=== PATIENT | male | born 1950 | race Caucasian/White ===

== ENCOUNTER 2016-08-14 11:52 | Emergency (ER) | payer MEDICARE, MEDICAID, OTHER ==
--- NOTE | ~2016-08-14 | ER ---
PATIENT'S NAME: ЕЛЕНА ESTES [facility] AGE: 66 Y [address] ROOM: [place] [address] LOCATION: [facility] ADMIT DATE: 08/14/2016 ER/Outpatient Report DISCHARGE DATE: 08/14/2016 FAMILY PHYSICIAN: Anaid Sandoval MD ATTENDING PHYSICIAN: Edvin Billingsley CHIEF COMPLAINT: Fall. HISTORY OF PRESENT ILLNESS: Immediately before EMS was called, the patient was following one of the care providers at the prison where the patient is a resident. By report, the patient had a witnessed fall. The individual who witnessed it and noticed that the patient where in he collapsed to his knees although collapse is not the best description. He more or less lowered himself to his knees and then fell forward and did strike his head. He does have advanced dementia. He normally is oriented to person and we will carry on a short brief conversation. People at the prison do note that his normal heart rate is 50 and his normal blood pressures are 90s and 100s systolically. He denies any other issues. EMS did note that his first blood pressure has taken by the facility immediately after the evaluation was in the 80 systolically. There is no report of loss of consciousness or seizure-like activity. Of note, he did recently complete a course of antibiotics for an unknown infection. PAST MEDICAL HISTORY: Documented on the record and reviewed by me. SOCIAL HISTORY: Documented on the record and reviewed by me. MEDICATIONS: Documented on the record and reviewed by me. ALLERGIES: DOCUMENTED ON THE RECORD AND REVIEWED BY ME. REVIEW OF SYSTEMS: All systems were reviewed and negative except as noted in the HPI. PHYSICAL EXAMINATION: VITAL SIGNS: Vital signs on arrival; blood pressure is 100/60, pulse 49, respiratory rate 16, temperature 96.5, SpO2 is 99% on room air. Pain is 0/10. GENERAL: Age-appropriate male. No obvious pain or distress. NEUROLOGIC: The patient is awake and alert. He is oriented to person, but not to date or time. GCS is 14 for that reason. No focal deficits or PATIENT'S NAME: ЕЛЕНА ESTES [facility] AGE: 66 Y [address] ROOM: [place], [place] [address] LOCATION: [facility] ADMIT DATE: 08/14/2016 ER/Outpatient Report DISCHARGE DATE: 08/14/2016 FAMILY PHYSICIAN: Anaid Sandoval MD ATTENDING PHYSICIAN: Edvin Billingsley asymmetry on exam. He stands without difficulty and walks without any significant abnormalities. HEENT: Normocephalic with a large area of hematoma over the right frontal region. No active bleeding. The pupils are PERRL. Extraocular movements are intact. The oropharynx is clear with no exudates or erythema. NECK: Supple. Trachea is midline. The neck has no posterior tenderness. CHEST/HEART: Regular rate and rhythm, bradycardic with no murmurs appreciated. The lungs are grossly clear to auscultation bilateral with no rhonchi, wheezes, or rales. ABDOMEN: Soft, nontender, and nondistended. BACK: Nontender to palpation along the spine. No paraspinal tenderness. No CVA tenderness. EXTREMITIES: Notable for skin tear over the lateral aspect of the right elbow, but otherwise unremarkable and intact. No edema or erythema appreciated. The extremities did not have any pain with palpation or range of motion of the shoulders, elbows, wrists, hips, knees, and ankles. No other abnormality. SKIN: Intact except as noted above. LABS AND X-RAYS: Chest x-ray was read as normal per my read. Head CT and C-spine CT were reported by Radiology to be within normal limits for age. Labs; procalcitonin is below threshold. Sodium 143, potassium 4.5, chloride is 106, CO2 is 28, BUN is 14, creatinine 1.0. GFR greater than 60. LFTs are within range. CPK is 61, CK-MB is 1.3. Troponin is below threshold. Free T4 is 0.8. TSH is 2.93. Serum lactate is 1.1. WBC 6.0, hemoglobin 13.3, platelets of 204. EKG appears to be sinus rhythm with a ventricular rate of approximately 50 with otherwise normal intervals and right axis deviation. No signs of acute ischemia. On telemetry, the patient was going in and out of atrial fibrillation. Rate was controlled throughout. IMPRESSION: 1. Fall. 2. Scalp contusion. 3. Skin tear. EMERGENCY DEPARTMENT COURSE: The patient was evaluated as above. He does appear to be at his baseline. He was slightly orthostatic from sitting to standing. He was given 500 mL bolus of NS. No other medications are warranted. I spoke personally with both the [facility] Lanette Ponce as well as the patient's power of research attorney, his son Javi. The patient does appear to be his baseline at this time. The nature of his fall appears to be mechanical. He may have some orthostasis associated with this. We treated that with fluids and are encouraging fluid intake. Basic wound cares to the elbow. He should follow up with Dr. Sandoval, PATIENT'S NAME: ЕЛЕНА ESTES [facility] AGE: 66 Y [address] ROOM: [place] [address] LOCATION: [facility] ADMIT DATE: 08/14/2016 ER/Outpatient Report DISCHARGE DATE: 08/14/2016 FAMILY PHYSICIAN: Anaid Sandoval MD ATTENDING PHYSICIAN: Edvin Billingsley whom I spoke to regarding this patient, on Wednesday for re-evaluation. All questions were answered and the patient was discharged and returned to the facility in good condition. MD JEANIE MORRIS/tarynl /[id number] d: 08/14/16 1809 t: 08/15/16 0625, OUTPATIENT REPORT
[2016-08-14 12:18] LABS: BASOPHIL % 0.5 %; EOSINOPHIL # 0.4 K/uL (0.0-0.5); EOSINOPHIL % 6.5 %; HEMATOCRIT 40.5 % (37.0-53.0); HEMOGLOBIN 13.3 g/dL (11.0-16.0); IMMATURE GRANULOCYTE % 0.2 %; LYMPHOCYTE # 1.4 K/uL (0.8-4.0); LYMPHOCYTE % 22.4 %; MCH 31.1 pg (27.0-34.0); MCHC 32.8 gm/dL (32.0-36.5); MCV 94.6 fl (83.0-98.0); MONOCYTE # 0.4 K/uL (0.0-1.0); MONOCYTE % 5.8 %; MPV 11.1 fl (9.4-12.4); NEUTROPHIL # (ANC) 3.9 K/uL (1.4-9.0); NEUTROPHIL % 64.6 %; NRBC % 0 /100WBC (0-0.00); PLATELET COUNT 204 K/uL (150-450); RBC 4.28 M/uL (3.50-5.50); RDW-CV 13.4 % (11.9-14.6)
[2016-08-14 12:47] LABS: ALBUMIN 3.3 gm/dL (3.5-5.0); ALK PHOS 53 IU/L (33-138); ALT 32 IU/L (12-78); ANION GAP 13.5 (10.0-19.0); AST 19 IU/L (10-40); BLOOD UREA NITROGEN 14 mg/dL (6-24); CALCIUM 8.6 mg/dL (8.5-10.5); CHLORIDE 106 mMol/L (96-110); CO2 28 mMol/L (22-32); CPK 61 IU/L (35-332); ESTIMATED GFR (MDRD EQUATION) > 60; POTASSIUM 4.5 mMol/L (3.7-5.1); SODIUM 143 mMol/L (135-145); TOTAL BILIRUBIN 0.4 mg/dL (0.0-1.5); TOTAL PROTEIN 6.4 g/dL (6.0-8.4)
== END 2016-08-14 14:01 | disposition disaster alternative care site (69) ==
LOC: GACC 11:52
PROVIDERS: Emergency Medicine
DX: S51.011A Laceration without foreign body of right elbow, initial encounter (principal); S00.03XA Contusion of scalp, initial encounter; F03.90 Unspecified dementia, unspecified severity, without behavioral disturbance, psychotic disturbance, mood disturbance, and anxiety; Z88.0 Allergy status to penicillin; W20.8XXA Other cause of strike by thrown, projected or falling object, initial encounter; Y92.129 Unspecified place in nursing home as the place of occurrence of the external cause
CPT/HCPCS: J7030

== ENCOUNTER → 2016-08-14 | Outpatient (CLI) | payer MEDICARE, OTHER, MEDICAID ==
[~2016-08-14] MED LIST: ASPIRIN LO-DOSE81 MG PO; COMPLETE MULTI1 EAC1 PO; CYMBALTA30 MG PO; DESYREL50 MG PO; GEODON20 MG PO; GEODON60 MG PO; LEVOTHROID (SY25 MCG PO; MAALOX LIQ UNIT30 ML PO; METAMUCIL PACKE1 PKT PO; MILK OF MA400 MG/5 M PO; MIRALAX17 GM PO; NAMENDA XR28 MG PO; NITROSTAT0.4 MG SL; NUTRITIONAL SU237 ML PO; TOPROL XL100 MG PO; TYLENOL325 MG PO; [UNRECOGNIZED DRUG - OTHER] TOP
== END | disposition disaster alternative care site (69) ==
LOC: GAMB 11:34
DX: R53.1 Weakness (principal); R55 Syncope and collapse; S00.83XA Contusion of other part of head, initial encounter; W19.XXXA Unspecified fall, initial encounter
CPT/HCPCS: A0422; A0425; A0427

== ENCOUNTER 2016-09-30 17:35 | Inpatient (IN) | payer MEDICARE, MEDICAID, OTHER ==
[~2016-09-30] VITALS: Ht 195.6 cm; Wt 74.8 kg
--- NOTE | ~2016-09-30 | DS ---
PATIENT'S NAME: ЕЛЕНА ESTES [facility] AGE: 66 Y [address] ROOM: [id number] [place], [place] [address] LOCATION: [facility] ADMIT DATE: 09/30/2016 Discharge Summary DISCHARGE DATE: 10/07/2016 FAMILY PHYSICIAN: Anaid Sandoval MD ATTENDING PHYSICIAN: Jayant Crenshaw ADMISSION DIAGNOSIS: Right hip fracture (intertrochanteric fracture of right hip). DISCHARGE DIAGNOSIS: Right hip fracture, status post repair (intertrochanteric fracture of right hip). SECONDARY DIAGNOSES: Dementia, hypertension, hyperlipidemia, and hypothyroidism. HOSPITAL COURSE: The patient resided at [facility]. He fell on 09/30/2016 and sustained a right hip fracture, intertrochanteric fracture. It was surgically repaired on 10/01/[address] Rizzo. He did well postoperatively. Postoperative hemoglobin 11.9. He did have family stay with him in the room at times to help with his agitation due to his dementia. Continued his same home medications. It was determined that he needed to go to long term facility postoperatively and it did take a couple of days to find a placement. He is going to go to [facility] today. DISPOSITION: Discharged to [facility]. FOLLOWUP: Follow up with myself in two weeks and with orthopedics per their recommendation. We will plan to continue with OT and PT therapies at [facility]. MEDICATIONS: 1. Tylenol 650 mg p.o. b.i.d. and q.4 hours p.r.n. pain and fever. 2. Aspirin 81 mg p.o. q.h.s. 3. Colace 100 mg p.o. twice a day. 4. Cymbalta 30 mg twice daily. 5. Levothyroxine 25 mcg p.o. daily. 6. Toprol-XL 100 mg p.o. daily. 7. MiraLAX 17 g p.o. daily p.r.n. constipation. 8. Metamucil packet one packet every 48 hours. 9. Trazodone 50 mg p.o. q.h.s. 10. Maalox p.r.n. 11. Geodon 60 mg b.i.d. and 20 mg q.8 hours p.r.n. anxiety/agitation. 12. Milk of magnesia p.r.n. 13. Nitroglycerin sublingual 0.4 mg p.r.n. chest pain. PATIENT'S NAME: ЕЛЕНА ESTES [facility] AGE: 66 Y [address] ROOM: [place] [address] LOCATION: [facility] ADMIT DATE: 09/30/2016 Discharge Summary DISCHARGE DATE: 10/07/2016 FAMILY PHYSICIAN: Anaid Sandoval MD ATTENDING PHYSICIAN: Jayant Crenshaw 14. Multivitamin one tablet daily. 15. Provon cream applied to scrotum twice daily with toileting. 16. Namenda XR 28 mg p.o. q.h.s. 17. Lactose-free nutritional supplement one can t.i.d. MD ANNA GRAY/modl /[id number] d: 10/07/16623 t: 10/20/162020, DISCHARGE SUMMARY
--- NOTE | ~2016-09-30 | ER ---
PATIENT'S NAME: ЕЛЕНА ESTES [facility] AGE: 66 Y [address] ROOM: [place] [address] LOCATION: [facility] ADMIT DATE: 09/30/2016 ER/Outpatient Report DISCHARGE DATE: FAMILY PHYSICIAN: Anaid Sandoval MD ATTENDING PHYSICIAN: Jayant Crenshaw Admission date and time documented in the medical record. I saw the patient at 1805 hours when I came on shift. CHIEF COMPLAINT: Ground-level fall, right hip pain. HISTORY OF PRESENT ILLNESS: The patient is a 66-year-old male who lives at [facility]. He does have Alzheimer dementia, was found on the floor by staff. Unwitnessed fall. The patient was awake. Complained of right hip pain, brought to the emergency room by paramedics via ambulance for evaluation. The patient has a little bit of shortening of the right leg. He is not able to converse or give me any information. On movement of the right hip, it is painful. Does have some minor skin tear abrasions to the right elbow. HOME MEDICATIONS: See attached medication list. ALLERGIES: PENICILLIN. SOCIAL HISTORY: Nonsmoker, nondrinker. SIGNIFICANT PAST MEDICAL HISTORY: Alzheimer dementia, hypothyroidism, hypertension, and depression. OPERATIONS: Unknown. ROS: Unable to obtain review of systems from the patient. PHYSICAL EXAMINATION: VITAL SIGNS: Temperature 98.2, tympanic; pulse 66; respirations 20; blood pressure 125/70; O2 saturation on room air was 96%. HEAD: Normocephalic. No abrasion, contusion, laceration, swelling of the scalp or face. EYES: Extraocular muscles intact. PERRL. PATIENT'S NAME: ЕЛЕНА ESTES [facility] AGE: 66 Y [address] ROOM: [place] [address] LOCATION: [facility] ADMIT DATE: 09/30/2016 ER/Outpatient Report DISCHARGE DATE: FAMILY PHYSICIAN: Anaid Sandoval MD ATTENDING PHYSICIAN: Jayant Crenshaw EARS, NOSE, THROAT: Clear. Mucous membranes are moist. Teeth and jaw intact. NECK: No nuchal rigidity. No thyromegaly or cervical adenopathy. No tenderness. SPINE: Negative. LUNGS: Clear. Good air flow. No rales, rhonchi, or wheezes. HEART: Regular. Pulses are palpable. ABDOMEN: Soft, flat, nondistended, nontender. Good bowel tones. No organomegaly or abnormal masses palpable. PELVIS: Stable. EXTREMITIES: The patient has a slightly shortened right lower extremity, has pain to any type of motion, has some skin tears to his right elbow. No other deformities. NEURO: The patient is demented, Alzheimer dementia. No lateralizing signs. No other neurological changes. SKIN: Clear. IMAGING DATA: X-ray of the right elbow showed no fracture or dislocation. X-ray of the pelvis shows a femoral neck fracture, right hip. We will review all plain films with the radiologist proceeded with EKG, chest x-ray, laboratory studies, all pending. IMPRESSION: 1. A femoral neck fracture, right hip secondary to ground-level fall, unwitnessed. 2. Alzheimer dementia. 3. Hypothyroidism. 4. Hypertension. 5. Depression. PLAN: Discuss[facility] the patient with Dr[facility]shaw has come to the emergency room to evaluate the patient and proceed on his recommendations. I did not contact Ortho at this time. We will let Dr. Crenshaw decide on that. The family had no preference for orthopedic surgeon. I did discuss everything with the family and they understand. MONROE CHIN MD SDS/modl PATIENT'S NAME: ЕЛЕНА ESTES [facility] AGE: 66 Y [address] ROOM: [address] [address] LOCATION: [facility] ADMIT DATE: 09/30/2016 ER/Outpatient Report DISCHARGE DATE: FAMILY PHYSICIAN: Anaid Sandoval MD ATTENDING PHYSICIAN: Jayant Crenshaw /[id number] d: 10/01/16 0058 t: 10/01/161808, OUTPATIENT REPORT
--- NOTE | ~2016-09-30 | HP ---
PATIENT'S NAME: ЕЛЕНА ESTES [facility] AGE: 66 Y [address] ROOM: [place] [address] LOCATION: [facility] ADMIT DATE: 09/30/2016 History & Physical DISCHARGE DATE: FAMILY PHYSICIAN: Anaid Sandoval MD ATTENDING PHYSICIAN: Jayant Crenshaw DATE OF SERVICE: CHIEF COMPLAINT: Subtrochanteric fracture of left hip. HISTORY: This 66-year-old male has had a 10-year history of dementia. He has been at [facility] for the past 3-1/2 years. He fell yesterday and suffered a subtroch fracture of his left hip. There was no other injury. No loss of consciousness. The son says he has had a gradual deterioration of his mental status over the last year. He was seen in the [facility] Emergency Room and evaluated and x-rays demonstrated a displaced subtroch fracture of the left hip. PAST MEDICAL HISTORY: 1. Alzheimer's for 10 years. 2. Coronary artery disease. 3. Hyperlipidemia. 4. Hypertension. 5. History of TIA in 2005. PREVIOUS SURGERIES: Appendectomy, hip surgery, shoulder surgery, and tonsillectomy. SOCIAL HISTORY: Stopped chewing tobacco several years ago. Smoked for 25 years, quit in 2001. MEDICATIONS: 1. Cymbalta. 2. Desyrel. 3. Geodon. 4. Levothyroxine. 5. Namenda. 6. Toprol. 7. Nitrostat. FAMILY HISTORY: Positive for hypertension. PATIENT'S NAME: ЕЛЕНА ESTES [facility] AGE: 66 Y [address] ROOM: [place] [address] LOCATION: [facility] ADMIT DATE: 09/30/2016 History & Physical DISCHARGE DATE: FAMILY PHYSICIAN: Anaid Sandoval MD ATTENDING PHYSICIAN: Jayant Crenshaw REVIEW OF SYSTEMS: From the chart, there are no recent coughs, colds, fevers, chills. No chest pain. No dysuria or hematuria. No nausea or vomiting. Steady decline in neurologic status and loss of memory secondary Alzheimer's. PHYSICAL EXAMINATION: GENERAL: He is minimally verbal, says a few words. He cannot carry on a conversation. He opens his eyes, moves his head, but does not respond much to verbal questions. VITAL SIGNS: Weight 75 kg, pulse 66, respirations 18, temperature 98, and blood pressure 121/70, O2 sats 96% on room air. HEENT: Atraumatic, normocephalic. PERRL. EOMI. NECK: Supple, nontender. CHEST: Clear to auscultation. HEART: Regular rhythm. ABDOMEN: No masses. No tenderness. Active bowel sounds. EXTREMITIES: No edema. Intact pulses. Left leg is short and externally rotated. There is pain with movement of the left hip. He is tender in left groin. Skin is intact. There is no bruising. Knee and ankle have no swelling or tenderness. He moves his toes, cannot really respond much to verbal stimuli to assess sensation. DIAGNOSTIC DATA: Hemoglobin is 13.5, white count 10.4. IMPRESSION: 1. Subtrochanteric fracture left hip. 2. Fairly severe Alzheimer's dementia. 3. Hypertension. 4. Hypothyroidism, compensated. 5. Hyperlipidemia. 6. History of transient ischemic attacks. 7. History of tobacco abuse. 8. Fairly heavy alcohol use. PLAN: Preoperative medical clearance. He is not on any anticoagulants. We will plan on ORIF of his left hip after he has been cleared medically. I discussed details of the surgical procedure, risks, benefits, and alternatives, emphasizing anesthetic, neurovascular, and infectious complications. His son is here and we thoroughly discussed all the issues. His son is POA and desires that his father be surgically repaired. He understands that Dr. Rizzo will be doing the surgery. PATIENT'S NAME: ЕЛЕНА ESTES [facility] AGE: 66 Y [address] ROOM: [place] [address] LOCATION: [facility] ADMIT DATE: 09/30/2016 History & Physical DISCHARGE DATE: FAMILY PHYSICIAN: Anaid Sandoval MD ATTENDING PHYSICIAN: Jayant Crenshaw MD BHARGAV PARSON/albert /[id number] CC: Anaid Sandoval MD D: [id number] T: [id number] HISTORY & PHYSICAL
--- NOTE | ~2016-09-30 | OR ---
PATIENT'S NAME: ЕЛЕНА ESTES [facility] AGE: 66 Y [address] ROOM: [address] [place], [place] [address] LOCATION: [facility] ADMIT DATE: 09/30/2016 OR/Procedure Report DISCHARGE DATE: FAMILY PHYSICIAN: Anaid Sandoval MD ATTENDING PHYSICIAN: Jayant Crenshaw SURGEON: Rahul Rizzo MD BUCKET TURNER: DATE OF PROCEDURE: 10/01/2016 PREOPERATIVE DIAGNOSIS: Intertrochanteric fracture, right hip. POSTOPERATIVE DIAGNOSIS: Right femoral neck fracture. PROCEDURE: Percutaneous cannulated screw fixation. ANESTHESIA: General ET tube. INDICATIONS: This is a 66-year-old demented male, who fell yesterday sustaining a fracture of his right hip. Radiographs were difficult to get, and it was uncertain at what level the fracture was, but it looked like an intertrochanteric fracture. DESCRIPTION OF PROCEDURE: The patient was brought to the operating room and when a satisfactory general anesthesia had been established, he was transferred to the fracture table, and the fracture reduced with longitudinal traction and internal rotation. Reduction was checked with the C-arm, and it was noted to be a femoral neck fracture and definitely intracapsular. The right hip and thigh were then prepped and draped in an aseptic manner. The hip was visualized on the C-arm, and a line was drawn on the skin on the superior and inferior borders of the neck on the AP and the anterior and inferior borders of the neck on the lateral view. An incision was made approximating the posteroinferior aspect of the neck and the first guidepin was then drilled. When it was satisfactorily placed, a posterosuperior guidepin was drilled and then a central anterior guidepin was drilled. Each guidepin was measured, over-reamed, and filled with a 6.5 cannulated long- threaded screw over a washer. Each of the three screws tightened down nicely. Position of the implants and fracture fragments were then checked with the C- arm. The wounds were irrigated with saline, and subcutaneous fat closed with interrupted 2-0 Vicryl, and the skin closed with skin carlton. Dressings were applied, and the patient awakened and sent to the recovery area having tolerated the procedure well. PATIENT'S NAME: ЕЛЕНА ESTES [facility] AGE: 66 Y [address] ROOM: [address] [address] LOCATION: [facility] ADMIT DATE: 09/30/2016 OR/Procedure Report DISCHARGE DATE: FAMILY PHYSICIAN: Anaid Sandoval MD ATTENDING PHYSICIAN: Jayant Crenshaw MD CEChristine/albert /[id number] d: 10/01/16 2353 t: 10/07/16 1043, OPERATIVE SUMMARY
--- NOTE | ~2016-09-30 | HP ---
PATIENT'S NAME: ЕЛЕНА ESTES [facility] AGE: 66 Y [address] ROOM: [place] [address] LOCATION: [facility] ADMIT DATE: 09/30/2016 History & Physical DISCHARGE DATE: FAMILY PHYSICIAN: Anaid Sandoval MD ATTENDING PHYSICIAN: Sandra Crenshaw DATE OF SERVICE: CHIEF COMPLAINT: Right hip fracture. HISTORY OF PRESENT ILLNESS: The patient is a 66-year-old male with pretty significant dementia who came in from [facility] after having a fall. This is an unwitnessed fall from ground level with complaint of pain in his right hip and unable to bear weight on it. He has some significant dementia and so really cannot provide us lot of history. PAST MEDICAL HISTORY: Significant for Alzheimer disease, coronary artery disease which is nonobstructive, hyperlipidemia, hypertension, and a history of TIA back in 2005. PRIOR SURGERIES: Appendectomy, hip surgery in 2001, shoulder surgery in 1994 with rotator cuff repair, and tonsillectomy in the past. SOCIAL HISTORY: He does chew tobacco every day, is a former smoker, 25-year history, quit in 2001. IMMUNIZATION: Tdap and pneumonia vaccine in 2013. REVIEW OF SYSTEMS: Really unobtainable secondary to his dementia. PHYSICAL EXAMINATION: VITAL SIGNS: Weight is 74.4 kilograms, pulse 66, respirations 20, temperature 98.2, blood pressure 121/70, O2 saturation 96% on room air. GENERAL: The patient is a nontoxic appearing male, moderate amount of distress with movement. HEENT: Normocephalic, atraumatic. Ears, TMs are clear and intact bilaterally. Nose patent. Throat clear. NECK: Supple without lymphadenopathy, JVD, thyromegaly, or bruits. PATIENT'S NAME: ЕЛЕНА ESTES [facility] AGE: 66 Y [address] ROOM: [address] [address] LOCATION: [facility] ADMIT DATE: 09/30/2016 History & Physical DISCHARGE DATE: FAMILY PHYSICIAN: Anaid Sandoval MD ATTENDING PHYSICIAN: Sandra Crenshaw HEART: Regular rate and rhythm. LUNGS: Clear. ABDOMEN: Soft, nondistended, and nontender. Bowel sounds are positive. There is no hepatosplenomegaly. No guarding or rebound. EXTREMITIES: No clubbing, cyanosis, or edema. His right foot is a little bit shortened and externally rotated. He does have definite pain on palpation over the lateral aspect of the hip. LABORATORY DATA: His CBC; white cell count is 10.4, hemoglobin 13.5, hematocrit 40.1%. ASSESSMENT AND PLAN: A 66-year-old white male with following problems, 1. Right hip fracture. Will consult Ortho. Certainly not an ideal operative candidate. We will try and optimize his risk prior to going to the OR. 2. History of nonobstructive coronary disease. He no longer follows with cardiology. He is overall stable from a heart standpoint. 3. Hyperlipidemia, overall stable. 4. Pretty significant Alzheimer's dementia without evidence of behavioral disturbance. He is really confused and sounds like this is baseline. a. We will have a one-to-one observation with him. We will see how he does with that. 5. Hypertension, overall stable at this point. SANDRA CRENSHAW MD TAB/modl /[id number] D: [id number] T: [id number] HISTORY & PHYSICAL
--- NOTE | ~2016-09-30 | HP ---
PATIENT'S NAME: ЕЛЕНА MARTINO [facility] AGE: 66 Y [address] ROOM: [place] [address] LOCATION: [facility] ADMIT DATE: 09/30/2016 History & Physical DISCHARGE DATE: FAMILY PHYSICIAN: Anaid Sandoval MD ATTENDING PHYSICIAN: Jayant Crenshaw DATE OF SERVICE: I need to dictate a corrected history and physical on Елена Martino. Couple hours ago, I was looking at the wrong x-rays on him, so I need to correct this; they were the wrong date, anyway keep the history and physical except change it to pain in the right hip, not left hip, he fell and fractured his right hip. CHIEF COMPLAINT: Intertrochanteric fracture of the right hip. PHYSICAL EXAMINATION: His left hip moves without pain. He has good range of motion. Right hip is painful with motion and tender. There was slight external rotation to the right lower extremity. No redness, warmth, or ecchymosis. Everything else about the physical exam should be the same. X-RAYS: X-ray, AP pelvis, and frog lateral of the hips with also AP of the left hip shows minimally displaced intertrochanteric fracture of the right hip right at the base of the femoral neck. There was a healed angulated subtrochanteric fracture of the left hip. DIAGNOSES: 1. Intertrochanteric fracture, right hip. 2. Healed subtrochanteric fracture, left hip. PLAN: Preoperative medical clearance followed by ORIF of the right hip. I discussed details of the surgical procedure, risks, benefits, and alternatives emphasizing anesthetic, neurovascular, and infectious complications with both the patient and his son, who is his POA. They understand and desired to proceed with surgery as planned. GENESIS AYON MD PATIENT'S NAME: ЕЛЕНА MARTINO [facility] AGE: 66 Y [address] ROOM: [place] [address] LOCATION: [facility] ADMIT DATE: 09/30/2016 History & Physical DISCHARGE DATE: FAMILY PHYSICIAN: Anaid Sandoval MD ATTENDING PHYSICIAN: Jayant Crenshaw/modl /[id number] D: [id number] T: [id number] HISTORY & PHYSICAL
[2016-09-30 19:13] LABS: BASOPHIL # 0.1 K/uL (0.0-0.2); BASOPHIL % 0.5 %; EOSINOPHIL # 0.2 K/uL (0.0-0.5); EOSINOPHIL % 1.6 %; HEMATOCRIT 40.1 % (37.0-53.0); HEMOGLOBIN 13.5 g/dL (11.0-16.0); IMMATURE GRANULOCYTE # 0.1 K/uL (0.0-0.3); IMMATURE GRANULOCYTE % 0.9 %; LYMPHOCYTE % 9.3 %; MCH 31.1 pg (27.0-34.0); MCHC 33.7 gm/dL (32.0-36.5); MCV 92.4 fl (83.0-98.0); MONOCYTE # 0.5 K/uL (0.0-1.0); MONOCYTE % 4.4 %; NEUTROPHIL # (ANC) 8.6 K/uL (1.4-9.0); NEUTROPHIL % 83.3 %; NRBC % 0 /100WBC (0-0.00); PLATELET COUNT 269 K/uL (150-450); RBC 4.34 M/uL (3.50-5.50); RDW-CV 12.7 % (11.9-14.6); WBC 10.4 K/uL (4.0-11.0)
[2016-09-30 19:21] LABS: INR - (THERAPEUTIC) 1.08 (0.92-1.07); PROTIME 11.3 SECONDS (9.8-11.4); PTT 28 SECONDS (25-32)
[2016-09-30 19:25] LABS: ALBUMIN 3.5 gm/dL (3.5-5.0); ANION GAP 11.2 (10.0-19.0); BLOOD UREA NITROGEN 15 mg/dL (6-24); CALCIUM 8.9 mg/dL (8.5-10.5); CHLORIDE 106 mMol/L (96-110); CO2 29 mMol/L (22-32); CREATININE 0.8 mg/dL (0.6-1.3); ESTIMATED GFR (MDRD EQUATION) > 60; PHOSPHORUS 2.5 mg/dL (2.5-4.9); POTASSIUM 4.2 mMol/L (3.7-5.1); SODIUM 142 mMol/L (135-145)
[2016-09-30] MEDS ORDERED: LEVOTHROID (SY25 MCG PO (20:34)
[2016-09-30] MEDS ORDERED: METAMUCIL PACKE1 PKT PO (20:35)
[2016-09-30] MEDS ORDERED: TYLENOL325 MG PO ×2 (20:35→20:43)
[2016-09-30] MEDS ORDERED: TOPROL XL100 MG PO (20:36)
[2016-09-30] MEDS ORDERED: COMPLETE MULTI1 EAC1 PO (20:36)
[2016-09-30] MEDS ORDERED: [UNRECOGNIZED DRUG - OTHER] TOP (20:39)
[2016-09-30] MEDS ORDERED: ASPIRIN LO-DOSE81 MG PO (20:39)
[2016-09-30] MEDS ORDERED: CYMBALTA30 MG PO (20:39)
[2016-09-30] MEDS ORDERED: NAMENDA XR28 MG PO (20:40)
[2016-09-30] MEDS ORDERED: GEODON60 MG PO (20:40)
[2016-09-30] MEDS ORDERED: DESYREL50 MG PO (20:41)
[2016-09-30] MEDS ORDERED: NUTRITIONAL SU237 ML PO (20:41)
[2016-09-30] MEDS ORDERED: MIRALAX17 GM PO (20:42)
[2016-09-30] MEDS ORDERED: NITROSTAT0.4 MG SL (20:44)
[2016-09-30] MEDS ORDERED: MAALOX LIQ UNIT30 ML PO (20:45)
[2016-09-30] MEDS ORDERED: MILK OF MA400 MG/5 M PO (20:45)
[2016-09-30] MEDS ORDERED: GEODON20 MG PO (20:46)
--- NOTE | 2016-09-30 22:00 | NUR ---
Patient had gone to the bathroom and walked to the sink outside the bathroom with his pants still around his ankles and fell. The was not witnessed this information was per senior living staff. It is unknown how long he was on the floor. Ambulance was called and taken to [facility].
--- NOTE | 2016-10-01 04:47 | NUR ---
Significant Event: Bedrest. NPO after 0700 for sugery in the afternoon. Skin tear to R) elbow. Family at [facility]. Has Althamiers. Follow up:
[2016-10-01 05:42] LABS: BASOPHIL % 0.4 %; EOSINOPHIL # 0.3 K/uL (0.0-0.5); EOSINOPHIL % 2.5 %; HEMATOCRIT 39.3 % (37.0-53.0); HEMOGLOBIN 12.9 g/dL (11.0-16.0); IMMATURE GRANULOCYTE % 0.3 %; LYMPHOCYTE # 1.2 K/uL (0.8-4.0); MCH 30.4 pg (27.0-34.0); MCHC 32.8 gm/dL (32.0-36.5); MCV 92.7 fl (83.0-98.0); MONOCYTE # 0.8 K/uL (0.0-1.0); MONOCYTE % 7.6 %; MPV 10.9 fl (9.4-12.4); NEUTROPHIL # (ANC) 8.2 K/uL (1.4-9.0); NEUTROPHIL % 78.2 %; NRBC % 0 /100WBC (0-0.00); RBC 4.24 M/uL (3.50-5.50); RDW-CV 12.9 % (11.9-14.6); WBC 10.5 K/uL (4.0-11.0)
[2016-10-01 05:48] LABS: PLATELET COUNT 207 K/uL (150-450)
[2016-10-01 06:05] LABS: BLOOD UREA NITROGEN 12 mg/dL (6-24); CALCIUM 8.3 mg/dL (8.5-10.5); CHLORIDE 108 mMol/L (96-110); CO2 30 mMol/L (22-32); CREATININE 0.8 mg/dL (0.6-1.3); ESTIMATED GFR (MDRD EQUATION) > 60; SODIUM 144 mMol/L (135-145)
[2016-10-01 07:45] LABS: BILIRUBIN URINE NEGATIVE (NEGATIVE); BLOOD URINE 10 /UL (NEGATIVE); COLOR URINE YELLOW (YELLOW); GLUCOSE URINE NEGATIVE (NEGATIVE); KETONE URINE 5 mg/dL (NEGATIVE); LEUKOCYTES URINE NEGATIVE /UL (NEGATIVE); NITRITE URINE NEGATIVE (NEGATIVE); PH URINE 6.5 (4.0-8.0); PROTEIN URINE NEGATIVE (NEGATIVE); SPEC GRAVITY URINE 1.015 (1.003-1.035); TURBIDITY URINE CLEAR (CLEAR); UROBILINOGEN URINE NORMAL (NORMAL)
[2016-10-01 08:14] LABS: WBC URINE 0-2 #/HPF (NEGATIVE)
[2016-10-01 08:17] LABS: BACTERIA URINE RARE (NEGATIVE); EPITHELIAL URINE NEGATIVE #/HPF (NEGATIVE); MUCUS URINE NEGATIVE (NEGATIVE)
--- NOTE | 2016-10-01 10:00 | NUR ---
Introduced self/role to patients son/LUCY Caldwell. Patient lives at [facility] but will not be able to return there. He just left a message at [facility], because of their dementia unit. This will be his first choice. After that there is no preference. Looking for a Wednesday discharge. He questioned what all should be taken to a SNF and how billing works. Explained all this to his understanding. He reports dad also has Medicaid. I will contact [facility] and fax referral information and keep him posted. Due to surgery being later today I will have to send additional information tomorrow and hope I hear back late morning as to whether they can accept. Wrote my name on patients marker board.
--- NOTE | 2016-10-01 16:40 | NUR ---
Significant Event: pt resting in the bed. confused all of the time. son in the room. awaiting to go to or. permits signed and check list completed. de los santos cath intact. monika fluids infusing. iv morphine for pain. ativan given this afternoon. family very helpful. Follow up:
--- NOTE | 2016-10-02 04:44 | NUR ---
R.hip done. Hip fracture from a fall. Pt came to the floor @1939. Vs stable. No verbal response from patient. Opens eye to voice and responds to painful stimuli. Unable to assess sensation and strength of affected limb. No reflex action noted when palm of foot scratched. Last dose tylenol 650mg given @2118. Skin tear on elbow/hand coverd with dressing. Echymosis on both upper extremities. Give meds with ice-cream; make sure patient swallows. Son at bedside and ready to help if need be. Gilbert catheter to be removed this a.m.
--- NOTE | 2016-10-02 05:04 | NUR ---
I have reviewed all of SN Carissa from [facility]'s charting on this patient and I agree with it.
[2016-10-02 05:30] LABS: HEMATOCRIT 35.5 % (37.0-53.0); HEMOGLOBIN 11.9 g/dL (11.0-16.0)
--- NOTE | 2016-10-02 09:50 | NUR ---
[phone] Faxed more information to [facility] [place]. 1035 Margi from [facility] called and left a message. Not able to accept due to Medicaid numbers already in the building. 1045 Called [facility] and spoke to Jackelyn. Faxed referral. 1125 Updated patients son (not the same son as yesterday). [id number] Left a message for Jackelyn that patient has moved to [phone] if is coming to assess.
--- NOTE | 2016-10-02 14:31 | NUR ---
HAD TYLENOL AT 0730 FOR C/O DISCOMFORT. HAD MORPHINE 2 MG IV AND ATIVAN AT 0930 FOR PAIN AND RESTLESSNESS. MEPILEX DRESSING TO HIP C/D/I. CONFUSED TO PERSON, PLACE, AND TIME. NO VERBAL RESPONSE FROM PATIENT. SON AT BEDSIDE. TAKE PILLS CRUSHED IN ICE CREAM. VARGAS REMOVED AT 1315 WITH 2000 ML'S OUT.
--- NOTE | 2016-10-02 14:44 | NUR ---
Significant Event:TOOK OVER CARES AT 1330. PT WONT SPEAK TO NURSING BUT WILL TALK TO FAMILY. DISORIENTED X3. FLAT AFFECT. NO C/O PAIN. REPORTED THAT VARGAS WAS REMOVED AT 1315. NO VOID YET. DRSG TO R) HIP. SKIN TEAR TO R) ELBOW OPEN. ON RA. ACTIVE BS NO BM. Follow up:
--- NOTE | 2016-10-02 19:31 | NUR ---
PT. UNABLE TO DO INCENTIVE SPIROMETRY.
--- NOTE | 2016-10-03 04:23 | NUR ---
Significant Event: Disoriented x 3, opens eyes to voice. PERRLA 3mm brisk. Moves spontaneously, withdraws to all extremities. Systolic 100-110's, HR 50-80's, order for no telemetry, 1+ edema to bilateral lower extremities. RLE dressing x 2 to lateral and medial aspect of thigh, C/D/I, extremity elevated. Weight bearing as tolerated, 2PA pivot. R) elbow skin tear dressing intact. L.S. clear and diminished throughout, on RA. B.S. active, unsure of last BM? Incontinent of urine in large amounts. PIV R) forearm SL'd. Takeas medications crushed in vanilla ice cream, drinks water without difficulty. 1:1 feeder if family is not bedside with patient. Highest temperature recorded 99.3 Tymp. Follow up: [facility] Wednesday, neuro checks, alarms on at all times.
--- NOTE | 2016-10-03 14:44 | NUR ---
Significant Event: alert. disoriented x 3. Mainly nonverbal/incomprehensible when does speak. does follow some commands with ambulation. dsgs x 2 to right hip C/D/I. Takes meds crushed in ice cream. Regular diet. Feeder. No edema to right lower extremity and pedal pulse palpable. Hearing aid to left ear- speak into left ear. No tele per MD. IV to right forearm saline locked. ambulates with walker, gait belt and two assist. WBAT. Incontinent of urine. wears brief. discharge plan- SNF placement. Family at bedside all of shift.
--- NOTE | 2016-10-04 05:14 | NUR ---
DISORIENTED X3 IN RELATION TO ALZHIEMERS. NO C/O PAIN. AFEBRILE. CONTINUES ON ROOM AIR WITH O2 SATS IN UPPER 90S. FOLLOW UP: CONTINUE TO MONITOR PAIN.
--- NOTE | 2016-10-04 17:26 | NUR ---
Shift Summary: Alert but disoriented x3. Nonverbal. Follows commands at time. Dressing covered surgical incision on R) hip. Takes meds best with ice cream. Eats with assistance. HR's ranging from 67-125. No tele per order. Hearing aide L) ear. Ambulates 2A with walker and gait belt, has trouble turning right. Inc. on urine. Lungs clear and diminished and hypoactive bowel sounds. Family at bedside entire shift. Follow Up: SNF Facility? Family decision.
--- NOTE | 2016-10-04 17:51 | NUR ---
I agree with Jackelyn Gomez's documentation.
--- NOTE | 2016-10-05 04:14 | NUR ---
Significant Event: Pt alert to name only. Hx of Alzheimer's with irritability present. Following of commands is inconsistent. Will latch out and hold on your arm, hand, etc. Surgical incision on Rt hip, shadow drainage. Did take his meds whole for me last night. Ambulates x1-2 assist with walker/gaitbelt. Is incontinent of urine. Bed/chair alarm on at all times. Will try to get out of bed on Lt side; family requests that side rail to be up. Pt can be a feeder, but last night did eat his dinner by himself. Does need to be observed, though. Vital signs stable. Have been doing tympanic thermometer. Pt will state he is in pain. Has scheduled tylenol and PRN. Has PRN Ativan and Geodon (also scheduled). Follow up: Continue plan of care. SNF? Family to decide.
--- NOTE | 2016-10-05 09:45 | NUR ---
[facility]34 [facility] from [facility] called. They can not accept, no bed in their unit. I asked to be put on the waiting list for when there addition is completed. To called Javi when they have an opening. [facility] called, they can not accept. 1079 Update patients son. He asked me to call his brother Javi/LUCY. 1240 Called Javi #[phone] and updated him. Will try [facility]. Still waiting to hear back from [facility]. [address] [facility] and left a message. Called [facility], Carmela asked me to refax the information from Wednesday. Faxed again to [phone].
--- NOTE | 2016-10-05 13:33 | NUR ---
A - PT SCREENED D/T LOS. S/P R) HIP FX. ALZHEIMERS. DISORIENTED. 1:1 @ MEALS HT: 77" WT: 165# BMI:19.5 LABS: PREALB 26. MEDS: BOWEL/NAUSEA, SYNTHROID. DIET: REG. INTAKE: 25-100% (AVG ~48%) NEEDS: 4650-2673 KCAL (30-32 KCAL/KG), 75-90 G PRO (1-1.2 G/KG), 2250 ML FLUID (30 ML/KG). D - INADEQUATE NUTRIENT INTAKE R/T DECREASED APPETITE AEB INTAKE RECORD. I - GOAL FOR INTAKE 50-75% BY NEXT ASSESSMENT. WILL ADD ENSURE BID TO INC NUTRIENT INTAKE. M/E - WILL MONITOR INTAKE F/U IN 3-5 DAYS.
--- NOTE | 2016-10-05 18:14 | NUR ---
Significant Event: Patient oriented to self only. Hx of Alzheimer's. Follows commands at times. Transfers 1-2 assist, ambulates in hallway. L) hearing aide. No tele. Lungs clear/dim on room air. Incontinent of urine. Surgical incision to R) hip. R) forearm IV saline locked. Regular diet, give pills in ice cream. Feeder at times, family will assist. Follow up: Bed/Chair alarms on all times, railings up x3.
--- NOTE | 2016-10-06 04:38 | NUR ---
Significant Event: The patient is alert at times to self. Confused and has baseline severe dementia. VSS. On room air. No tele. PIV to the Right forearm saline locked. Alarms on at all times for safety, the patient does try to get out of bed and the chair. Very Hard of hearing. Dressing to the right hip C/D/I-replaced this shift due to the patient ripping it off. Abrasions and bruising to all extremities. Skin tears to bilateral elbows. Incontinent. Takes meds with icecream. 1:1 supervision while eating. Follow up:
--- NOTE | 2016-10-06 07:50 | NUR ---
[facility] in [place] called and left a message that they can not accept. 1120 [facility]'s call and said no because there is no room by the nurses station. 1135 Left a message for Carmela at [facility]. 1330 Left a message for Carmela at [facility]. 1335 called [facility], spoke to Razia. Faxed referral. 1340 Spoke to [facility] Referral line, faxed referral. 1400 Called Javi to update on lack of progress with placement. 1410 [facility] called and will accept tomorrow at 1230. Updated patients son Javi, charge nurse, patients nurse. Packet started, orders on the chart. [address] Sandoval, she will come and do orders. Called back [facility] and [facility] to disregard referral.
--- NOTE | 2016-10-06 16:18 | NUR ---
Significant Event:VSS, no tele, alert at times, disorientated x 3. Ativan 0.25mg po x 2 last dose at 1610 for restlessness. Takes meds with pudding on spoon with encouragement. Pt is very [place]. Mepilex dsg to R hip changed x 1 after pt pulled off. Incisions are approximated, stapled. CSM is adequate to lower extremities. Pt walked several times with staff, GB. Incontinent of urine, passing flatus. Feeds self without difficulties. Follow up:Monitor, tx in a.m. to [facility] at 1230.
--- NOTE | 2016-10-07 03:51 | NUR ---
Significant Event: Assumed cares at 2200. Patient has been drowsy and disoriented x 3. Has dementia. Alert at times. VSS. No telemetry. Impulsive. Alarms at all times. Takes medications with food and encouragement. [place]. Meplidex to right hip C/D/I. Incontinent. Bowel sounds active. No BM this shift. Last BM 10/02. 1PA, gait belt. Moves spontaneously and follows most commands. Follow up: transfer to [facility] this AM
--- NOTE | 2016-10-07 09:10 | NUR ---
Faxed orders to [facility]. Gave nurse number to patients nurse. Spoke with patients sons - Javi and Kirill. No additional needs or questions.
--- NOTE | 2016-10-07 09:19 | NUR ---
Pt is alert/disorientated times 3. Hx of dementia. Pt is very [place]. VSS, scheduled Tylenol 650mg po for pain. Swallows meds with applesauce, pudding or icecream. Ate 75% of meals without choking and minimal supervision. Mepilex dsg to R hip is CDI, changed this a.m. because pt removed it. Quentin remain intact. Pedal pulses +2 to feet, pt tx with SBA of 1/GB/Walker. At times pt will state he needs the restroom, mostly incontinent. Last BM 10/02. Taking laxatives, and passing flatus.
== END 2016-10-07 09:44 | DRG 481 ==
LOC: GMED 17:35 → GNTU 19:54 → G3N 19:54 → GNTU 10-02 13:30
PROVIDERS: Emergency Medicine; Orthopaedic Surgery; ADMIT Family Medicine
PROC: 2W6QXZZ Traction of Right Lower Leg (ICD-10-PCS; principal; 2016-10-01)
PROC: 0QS604Z Reposition Right Upper Femur with Internal Fixation Device, Open Approach (ICD-10-PCS; principal; 2016-10-01)
DX: S72.141A Displaced intertrochanteric fracture of right femur, initial encounter for closed fracture (principal); E44.1 Mild protein-calorie malnutrition; G30.9 Alzheimer's disease, unspecified; F03.90 Unspecified dementia, unspecified severity, without behavioral disturbance, psychotic disturbance, mood disturbance, and anxiety; Z68.1 Body mass index [BMI] 19.9 or less, adult; W19.XXXA Unspecified fall, initial encounter; I10 Essential (primary) hypertension; E03.9 Hypothyroidism, unspecified; E78.5 Hyperlipidemia, unspecified; I25.10 Atherosclerotic heart disease of native coronary artery without angina pectoris; F02.80 Dementia in other diseases classified elsewhere, unspecified severity, without behavioral disturbance, psychotic disturbance, mood disturbance, and anxiety; K59.00 Constipation, unspecified; Z86.73 Personal history of transient ischemic attack (TIA), and cerebral infarction without residual deficits; Z87.891 Personal history of nicotine dependence; Z72.89 Other problems related to lifestyle; Z79.82 Long term (current) use of aspirin
CPT/HCPCS: C1713; J2060; J2270; J7030; J7050; J7120

== ENCOUNTER → 2016-09-30 | Outpatient (CLI) | payer MEDICARE, OTHER, MEDICAID | END | disposition disaster alternative care site (69) | LOC: GAMB 17:17 | DX: S79.911A Unspecified injury of right hip, initial encounter (principal); G30.9 Alzheimer's disease, unspecified; F02.80 Dementia in other diseases classified elsewhere, unspecified severity, without behavioral disturbance, psychotic disturbance, mood disturbance, and anxiety; M25.551 Pain in right hip; X58.XXXA Exposure to other specified factors, initial encounter | CPT/HCPCS: A0425; A0429 ==

== ENCOUNTER → 2016-11-06 | Emergency (ER) | payer SELFPAY | END | disposition disaster alternative care site (69) | LOC: GAMB 17:21 → GMED 17:21 | DX: R53.1 Weakness (principal); Z86.59 Personal history of other mental and behavioral disorders; W19.XXXA Unspecified fall, initial encounter ==

== ENCOUNTER 2016-11-07 16:59 | Emergency (ER) | payer MEDICARE, OTHER, MEDICAID ==
--- NOTE | ~2016-11-07 | ER ---
PATIENT'S NAME: ЕЛЕНА MARTINO [facility] AGE: 66 Y [address] ROOM: [place] [address] LOCATION: [facility] ADMIT DATE: 11/07/2016 ER/Outpatient Report DISCHARGE DATE: 11/07/2016 FAMILY PHYSICIAN: Anaid Sandoval MD ATTENDING PHYSICIAN: Edvin Billingsley HISTORY OF PRESENT ILLNESS: Елена Martino is a 66-year-old male who was evaluated by Dr. Billingsley and I assumed the care at shift change at 6:00 p.[address]. Please refer to Dr. Billingsley's dictation. Елена Martino is a 66-year-old male who lives in [facility]. He has fairly advanced dementia. He has had frequent falls and today was found lying down after a fall unwitnessed. The patient denies any pain. He had no pain evident on examination per Dr. Billingsley. I did confirm the physical exam findings. PAST MEDICAL HISTORY: ALLERGIES: PENICILLIN. CURRENT MEDICATIONS: Reviewed and include: 1. Synthroid 25 mcg daily. 2. Acetaminophen 650 mg b.i.d. 3. Metamucil 1 tablespoon once daily. 4. Metoprolol ER 100 mg daily. 5. Multivitamin daily. 6. Aspirin 81 mg daily. 7. Colace 100 mg b.i.d. for constipation. 8. Cymbalta 30 mg b.i.d. 9. Geodon 60 mg b.i.d. 10. Namenda XR 28 mg at bedtime. 11. Trazodone 50 mg at bedtime. 12. Daily-Kit. P.r.n. medications include: 1. MiraLax. 2. Tylenol. 3. Nitrostat. 4. Milk of magnesia. 5. Maalox. 6. Geodon. 7. Percocet. 8. The patient has only received Geodon one time p.r.n. on the . MEDICAL PROBLEMS: PATIENT'S NAME: ЕЛЕНА MARTINO [facility] AGE: 66 Y [address] ROOM: [place] [address] LOCATION: [facility] ADMIT DATE: 11/07/2016 ER/Outpatient Report DISCHARGE DATE: 11/07/2016 FAMILY PHYSICIAN: Anaid Sandoval MD ATTENDING PHYSICIAN: Edvin Billingsley Dementia, heart disease, hyperlipidemia, hypertension, TIA. PRIOR SURGERIES: Recent hip surgery, appendectomy, tonsillectomy, shoulder surgery, rotator cuff hip surgery. REVIEW OF SYSTEMS: Unable to obtain from the patient. FAMILY HISTORY: No pertinent family history. PHYSICAL EXAMINATION: Please refer to Dr. Watters examination. The patient had no tenderness to pelvic rock. LABORATORY DATA: Sodium 146, potassium 4.2, chloride 108, CO2 29, BUN 12, creatinine 0.8, blood sugar 92. Liver enzymes normal. Hemoglobin 12.8, hematocrit 39.2, platelets 238, white count 7.1, INR 1.08, lactate 1.3. IMAGING: EKG sinus bradycardia at 58 beats per minute. No acute ST elevation or depression. Head CT without contrast. No acute findings per Dr. Scott. IMPRESSION: Dementia with frequent falls. No injuries. PLAN: Discussed with the patient's son who is here at the bedside. He will return to [facility]. I did place a reminder because his son said he has been a little bit more kind of difficult to control it. They do have a Geodon p.r.n. ordered and will follow up with Dr. Sandoval next week. Follow up sooner if any problems or concerns. LESLEE BALL MD CAR/modl /[id number] d: 11/08/16 0044 t: 11/18/16 1440, OUTPATIENT REPORT
--- NOTE | ~2016-11-07 | ER ---
PATIENT'S NAME: ЕЛЕНА ESTES [facility] AGE: 66 Y [address] ROOM: [place] [address] LOCATION: [facility] ADMIT DATE: 11/07/2016 ER/Outpatient Report DISCHARGE DATE: 11/07/2016 FAMILY PHYSICIAN: Anaid Snadoval MD ATTENDING PHYSICIAN: Edvin Billingsley CHIEF COMPLAINT: Fall. HISTORY OF PRESENT ILLNESS: The patient arrives by ambulance from [facility]. He was apparently found on the floor, seated about a foot to 2 feet in front of his wheelchair. No falls were witnessed. Per report, the patient has been falling/being found down on the floor much more frequently of late. He has had no witnessed falls according to staff at the facility. There are no outward signs of injury for this gentleman. He does have advanced dementia. I was able to speak with his power of collections attorney, Javi, who said they are concerned about him overall and would like him evaluated but there is no other facilities available for him. He did have a hip fracture approximately a month ago that was repaired. No other acute issues at this time. PAST MEDICAL HISTORY: As documented on the record and reviewed by me. SOCIAL HISTORY: As documented on the record and reviewed by me. MEDICATIONS: As documented on the record and reviewed by me. ALLERGIES: DOCUMENTED ON THE RECORD AND REVIEWED BY ME. REVIEW OF SYSTEMS: Review of systems was obtained via EMS, family, and facility as patient is nonverbal. PHYSICAL EXAMINATION: VITAL SIGNS: Blood pressure 109/75, pulse 64, respiratory rate is 18, temp 99, SpO2 is 94% on room air. GENERAL: Age-appropriate male. No obvious pain or distress, sitting upright on the exam table. NEUROLOGIC: The patient is awake, he spontaneously moves all extremities. He does not follow commands. He is nonverbal. HEENT: Normocephalic, atraumatic. Eyes are PERRL. Oropharynx is clear. PATIENT'S NAME: ЕЛЕНА ESTES [facility] AGE: 66 Y [address] ROOM: [place], [place] [address] LOCATION: [facility] ADMIT DATE: 11/07/2016 ER/Outpatient Report DISCHARGE DATE: 11/07/2016 FAMILY PHYSICIAN: Anaid Sandoval MD ATTENDING PHYSICIAN: Edvin Billingsley NECK: Supple. Trachea is midline. CHEST: Heart is regular rate and rhythm with no obvious murmurs. LUNGS: Clear to auscultation bilaterally. No rhonchi, wheezes, or rales. ABDOMEN: Soft, nontender, and nondistended. No rebound or guarding. EXTREMITIES: Warm and well perfused with no obvious deformities or abnormalities. BACK: Normal to inspection and palpation. SKIN: Clean, dry, and intact. LABORATORY DATA AND X-RAYS: Labs and x-rays are pending at the time of hand off. The patient's care was transferred to Dr. Krishnamurthy at 1800 hours with a plan to follow up his imaging, review his labs, and disposition accordingly. I anticipate he will likely be able to be discharged home with a normal workup. MD JEANIE MORRIS/albert /[id number] d: 11/08/16 0804 t: 11/18/16 1443, OUTPATIENT REPORT
[2016-11-07 17:45] LABS: BASOPHIL % 0.6 %; EOSINOPHIL # 0.4 K/uL (0.0-0.5); EOSINOPHIL % 5.5 %; HEMATOCRIT 39.2 % (37.0-53.0); HEMOGLOBIN 12.8 g/dL (11.0-16.0); IMMATURE GRANULOCYTE # 0.1 K/uL (0.0-0.3); LYMPHOCYTE # 1.3 K/uL (0.8-4.0); LYMPHOCYTE % 18.9 %; MCHC 32.7 gm/dL (32.0-36.5); MONOCYTE # 0.5 K/uL (0.0-1.0); MONOCYTE % 6.4 %; MPV 11.1 fl (9.4-12.4); NEUTROPHIL # (ANC) 4.8 K/uL (1.4-9.0); NEUTROPHIL % 67.6 %; NRBC % 0 /100WBC (0-0.00); PLATELET COUNT 238 K/uL (150-450); RBC 4.26 M/uL (3.50-5.50); WBC 7.1 K/uL (4.0-11.0)
[2016-11-07 17:56] LABS: INR - (THERAPEUTIC) 1.08 (0.92-1.07); PROTIME 11.4 SECONDS (9.8-11.4); PTT 27 SECONDS (25-32)
[2016-11-07 18:03] LABS: ALBUMIN 3.3 gm/dL (3.5-5.0); ALK PHOS 118 IU/L (33-138); ALT 24 IU/L (12-78); ANION GAP 13.2 (10.0-19.0); AST 17 IU/L (10-40); BLOOD UREA NITROGEN 12 mg/dL (6-24); CHLORIDE 108 mMol/L (96-110); CO2 29 mMol/L (22-32); CREATININE 0.8 mg/dL (0.6-1.3); ESTIMATED GFR (MDRD EQUATION) > 60; POTASSIUM 4.2 mMol/L (3.7-5.1); TOTAL BILIRUBIN 0.3 mg/dL (0.0-1.5); TOTAL PROTEIN 6.7 g/dL (6.0-8.4)
[2016-11-07 18:08] LABS: SODIUM 146 mMol/L (135-145)
== END 2016-11-07 19:25 | disposition disaster alternative care site (69) ==
LOC: GACC 16:59
PROVIDERS: Emergency Medicine
DX: F03.90 Unspecified dementia, unspecified severity, without behavioral disturbance, psychotic disturbance, mood disturbance, and anxiety (principal); R29.6 Repeated falls; E78.5 Hyperlipidemia, unspecified; I10 Essential (primary) hypertension; Z88.0 Allergy status to penicillin; Z90.49 Acquired absence of other specified parts of digestive tract; Z90.89 Acquired absence of other organs; Z98.890 Other specified postprocedural states; Z79.82 Long term (current) use of aspirin; Z79.899 Other long term (current) drug therapy

== ENCOUNTER → 2016-11-07 | Outpatient (CLI) | payer MEDICARE, OTHER, MEDICAID | END | disposition disaster alternative care site (69) | LOC: GAMB 19:12 | DX: R53.1 Weakness (principal); F03.90 Unspecified dementia, unspecified severity, without behavioral disturbance, psychotic disturbance, mood disturbance, and anxiety; T14.90 Injury, unspecified; W19.XXXA Unspecified fall, initial encounter | CPT/HCPCS: A0425; A0428 ==

== ENCOUNTER → 2016-11-07 | Outpatient (CLI) | payer MEDICARE, OTHER, MEDICAID | END | disposition disaster alternative care site (69) | LOC: GAMB 16:40 | DX: F03.90 Unspecified dementia, unspecified severity, without behavioral disturbance, psychotic disturbance, mood disturbance, and anxiety (principal); R26.9 Unspecified abnormalities of gait and mobility; W19.XXXA Unspecified fall, initial encounter | CPT/HCPCS: A0425; A0429 ==

== ENCOUNTER → 2016-12-06 | Emergency (ER) | payer MEDICARE, OTHER, MEDICAID | END | disposition disaster alternative care site (69) | LOC: GAMB 01:13 | DX: F03.90 Unspecified dementia, unspecified severity, without behavioral disturbance, psychotic disturbance, mood disturbance, and anxiety (principal); Z74.1 Need for assistance with personal care ==

== ENCOUNTER 2016-12-31 13:07 | Emergency (ER) | payer MEDICARE, OTHER, MEDICAID ==
--- NOTE | ~2016-12-31 | ER ---
PATIENT'S NAME: Е[facility]НА [facility] AGE: 66 Y [address] ROOM: [place] [address] LOCATION: [facility] ADMIT DATE: 12/31/2016 ER/Outpatient Report DISCHARGE DATE: 12/31/2016 FAMILY PHYSICIAN: Anaid Sandoval MD ATTENDING PHYSICIAN: Edvin Billingsley CHIEF COMPLAINT: Fall. HISTORY OF PRESENT ILLNESS: Mr. Martino has had 2 falls today. He was recently started on BuSpar. He was given Ativan this morning because he was trying to leave the facility. He had a fall around 7 a.m. and then again approximately 20 to 40 minutes prior to arrival. They were both unwitnessed. There is no clear injury; however, the staff at the facility note that he did say "ow" a few times when they were manipulating his right leg. He has a history of fracture at that side. He has a history of advanced dementia and is basically nonverbal at this point. His son, Javi, is the primary decision maker. PAST MEDICAL HISTORY: Documented on the record and reviewed by me. SOCIAL HISTORY: Documented on the record and reviewed by me. MEDICATIONS: Documented on the record and reviewed by me. ALLERGIES: DOCUMENTED ON THE RECORD AND REVIEWED BY ME. REVIEW OF SYSTEMS: All systems were reviewed and negative except as noted in the HPI. PHYSICAL EXAMINATION: VITAL SIGNS: Blood pressure 117/76, pulse is 60, respiratory rate 16, temperature 98.7, SpO2 is 97% on room air. Pain appears to be 0/10. GENERAL: Age-appropriate male. No obvious pain or distress. Upright on exam table. NEURO: The patient is awake, he is not alert. He is moving all extremities appropriately. He is able to put weight on his right extremity. No obvious abnormalities except as expected for his advanced dementia. HEENT: Normocephalic, atraumatic. No palpable abnormalities. NECK: Supple. Trachea is midline. HEART: Regular rate and rhythm with no murmurs. PATIENT'S NAME: [facility]А [facility] AGE: 66 Y [address] ROOM: [place] [address] LOCATION: [facility] ADMIT DATE: 12/31/2016 ER/Outpatient Report DISCHARGE DATE: 12/31/2016 FAMILY PHYSICIAN: Anaid Sandoval MD ATTENDING PHYSICIAN: Edvin Billingsley LUNGS: Clear to auscultation bilaterally with no rhonchi, wheezes, or rales. ABDOMEN: Soft, nontender, and nondistended. No rebound or guarding. BACK: Normal to inspection and palpation as far as we can tell. EXTREMITIES: Warm and well perfused. There is a deformity of the left tibia that appears chronic. The right lower extremity has no crepitus. When the hip is flexed and the knee is slightly extended, the patient does say "ow," but there are no obvious abnormalities on physical exam. He appears to be neurovascularly intact to the bilateral lower extremities. SKIN: Appears to be intact except for a new skin tear to the right elbow. LABORATORY DATA AND X-RAYS: Plain films of the hip, pelvis, and right knee were obtained with no acute abnormalities per my read. IMPRESSION: Falls. EMERGENCY DEPARTMENT COURSE: The patient was seen and evaluated as above. Based on the patient's reaction to physical exam, films of the right knee and hip were obtained. No clear fracture. I spoke with the patient's POA and son, Javi Martino, who did not desire further evaluation other than his injuries. Based on exam, I do not think the patient needs films of his upper extremities. I did discuss the case with Radiology and with Dr. Rizzo, orthopedic surgeon, who did his prior hip fracture repair and Dr. Rizzo does not appreciate any significant abnormalities of the x-rays compared to prior films. Ultimately, the patient was returned back to [facility] and son was updated. Dr. Rizzo would like to see the patient, however, for followup as it appears as though his hardware has backed out some from its initial placement, but it has not changed since he was seen in initial followup. All questions were answered to the best of my ability, and the patient was sent back to his facility in stable condition. MD JEANIE MORRIS/albert /[id number] d: 01/01/17 0125 t: 01/09/17 0722, OUTPATIENT REPORT
== END 2016-12-31 14:50 | disposition disaster alternative care site (69) ==
LOC: GACC 13:07
DX: S51.011A Laceration without foreign body of right elbow, initial encounter (principal); I25.10 Atherosclerotic heart disease of native coronary artery without angina pectoris; G30.9 Alzheimer's disease, unspecified; F02.80 Dementia in other diseases classified elsewhere, unspecified severity, without behavioral disturbance, psychotic disturbance, mood disturbance, and anxiety; Z88.0 Allergy status to penicillin; Z79.899 Other long term (current) drug therapy; W19.XXXA Unspecified fall, initial encounter; Y92.239 Unspecified place in hospital as the place of occurrence of the external cause

== ENCOUNTER → 2016-12-31 | Outpatient (CLI) | payer MEDICARE, OTHER, MEDICAID | END | disposition disaster alternative care site (69) | LOC: GAMB 12:53 | DX: R53.1 Weakness (principal); F03.90 Unspecified dementia, unspecified severity, without behavioral disturbance, psychotic disturbance, mood disturbance, and anxiety; W01.0XXA Fall on same level from slipping, tripping and stumbling without subsequent striking against object, initial encounter | CPT/HCPCS: A0425; A0429 ==